=== PATIENT | female | born 1995 | race Hispanic/Latino ===

== ENCOUNTER 2020-12-26 17:51 | Emergency (ER) | payer MEDICARE ==
[2020-12-26] MEDS ORDERED: HYDROCODONE/ACETAMINOPHEN 5/325 MG TAB ONE (19:02)
== END 2020-12-26 19:10 | disposition home or self-care (01) ==
LOC: EDH 17:51
DX: S40.012A Contusion of left shoulder, initial encounter (principal); S50.12XA Contusion of left forearm, initial encounter; V03.99XA Pedestrian with other conveyance injured in collision with car, pick-up truck or van, unspecified whether traffic or nontraffic accident, initial encounter; Y93.89 Activity, other specified; Y92.481 Parking lot as the place of occurrence of the external cause; Y99.8 Other external cause status
CPT/HCPCS: 73030; 73060; 73090

== ENCOUNTER 2021-02-21 02:03 | Emergency (ER) | payer MEDICARE ==
[~2021-02-21] VITALS: Ht 157.5 cm; Wt 111.6 kg
[2021-02-21 02:10] VITALS: BP 116/68
[2021-02-21 02:49] LABS: APPEARANCE,URINE Clear (CLEAR); BILIRUBIN,URINE Negative (NEGATIVE); COLOR,URINE Yellow (YELLOW); GLUCOSE, URINE (UA) Negative (NEGATIVE); KETONES,URINE Negative (NEGATIVE); LEUKOCYTE ESTERASE ,URINE Negative (NEGATIVE); NITRATE,URINE Negative (NEGATIVE); OCCULT BLOOD,URINE Negative (NEGATIVE); PROTEIN,URINE Negative (NEGATIVE)
[2021-02-21 02:56] LABS: HCG,QUAL RESULT NEGATIVE (NEGATIVE)
[2021-02-21] MEDS ORDERED: LIDOCAINE HCL 2% VISCOUS 15 ML UDCUP TP ONE (05:00)
[2021-02-21] MEDS ORDERED: HYDR25SU11 RC (05:03)
[2021-02-21 05:06] VITALS: BP 119/70
== END 2021-02-21 05:12 | disposition home or self-care (01) ==
LOC: EDH 02:03
DX: K64.4 Residual hemorrhoidal skin tags (principal); Z79.899 Other long term (current) drug therapy
CPT/HCPCS: 81003; 81025

== ENCOUNTER 2024-05-09 01:16 | Emergency (ER) | payer MEDICARE ==
[~2024-05-09] VITALS: Ht 157.5 cm; Wt 104.3 kg
[~2024-05-09 01:16] MED LIST: HYDR25SU11 RC
[2024-05-09] MEDS ORDERED: FLUCONAZOLE PO STA (01:37)
[2024-05-09 01:52] LABS: APPEARANCE,URINE CLEAR (CLEAR); BILIRUBIN,URINE NEGATIVE (NEGATIVE); COLOR,URINE LIGHT-YELLOW (YELLOW); GLUCOSE, URINE (UA) >=1000 mg/dL (NEGATIVE); KETONES,URINE 5 mg/dL (NEGATIVE); LEUKOCYTE ESTERASE ,URINE 75 Leu/uL (NEGATIVE); NITRATE,URINE NEGATIVE (NEGATIVE); OCCULT BLOOD,URINE MODERATE (NEGATIVE); PH,URINE 7.5 (5.0-8.0); PROTEIN,URINE NEGATIVE (NEGATIVE); UROBILINOGEN,URINE 0.2 mg/dL (0.2-1.0)
[2024-05-09 02:05] LABS: ADD UA MICROSCOPIC YES
[2024-05-09 02:11] LABS: BACTERIA,URINE Rare /HPF (None Seen)
[2024-05-09 02:14] LABS: SQUAMOUS EPITHELIAL CELL,UR Few /HPF (0-2)
[2024-05-09] MEDS ORDERED: CEPH500B PO (02:15)
[2024-05-09] MEDS ORDERED: FLUC150T48 PO (02:15)
[2024-05-09] MEDS: CEFTRIAXONE 500MG VIAL IM STA (02:43)
[2024-05-09] MEDS: AZITHROMYCIN 250 MG TABLET PO STA (02:43)
[2024-05-09] MEDS: fluCONazole 100 MG TAB PO ONE (02:46)
[2024-05-09 03:00] VITALS: BP 123/76; PULSE 75; RESP 18; TEMP 98.6; O2SAT 98
== END 2024-05-09 03:02 | disposition home or self-care (01) ==
LOC: EDH 01:16
DX: N39.0 Urinary tract infection, site not specified (principal); E03.9 Hypothyroidism, unspecified; F31.9 Bipolar disorder, unspecified; Z20.2 Contact with and (suspected) exposure to infections with a predominantly sexual mode of transmission; Z79.899 Other long term (current) drug therapy; Z98.890 Other specified postprocedural states
CPT/HCPCS: 99283; 87086; 87491; 87591; 81001; 96372; J0696